=== PATIENT | female | born 1960 | race Caucasian/White ===

== ENCOUNTER 2020-03-30 11:03 | Day surgery (SDC) | payer BC ==
[~2020-03-30 11:03] MED LIST: EPINEPHrine 1 MG/ML 30 ML MDV IRR SCH; Lactated Ringers 1,000 ML IV SCH; Lidocaine 1%/Sod Bicarbonate in NS 8.4% 1 ML Syringe IDERM PRN; Sodium Chloride 0.9% 10 ML Syringe FLUSH PRN
[2020-03-30] MEDS ORDERED: Bupivacaine 0.25% 10 ML SDV ONE (11:26)
--- NOTE | 2020-03-30 11:50 | PCM.PREANE ---
Preanesthetic Assessment - Anesthesia/Transfusion/Family Hx Anesthesia History: Prior Anesthesia Without Reaction - Review of Systems General: No Symptoms Pulmonary: No Symptoms Cardiovascular: No Symptoms Gastrointestinal: No Symptoms Neurological: No Symptoms Other: Reports: None - Physical Assessment NPO Status Date: 03/29/20 NPO Status Time: 21:00 Vital Signs: Last Vital Signs Temp 97.2 F 03/30/20 11:05 Pulse 71 03/30/20 11:05 Resp 16 03/30/20 11:05 BP 113/88 03/30/20 11:05 Pulse Ox 99 03/30/20 11:05 Height: 1.57 m Weight: 83.915 kg ASA Class: 2 Mental Status: Alert & Oriented x3 Airway Class: Mallampati = 2 Dentition: Reports: Normal Dentition Thyro-Mental Finger Breadths: 3 Mouth Opening Finger Breadths: 3 ROM/Head Extension: Full Lungs: Clear to Auscultation, Normal Respiratory Effort Cardiovascular: Regular Rate, Regular Rhythm - Lab Values: Laboratory Last Values SARS Virus RNA (PCR) Negative (NEGATIVE) 03/29/20 14:46 MRSA (PCR) Negative 03/22/20 13:17 - Allergies Allergies/Adverse Reactions: Allergies Allergy/AdvReac Type Severity Reaction Status Date / Time amoxicillin [From Augmentin] Allergy Stomach Verified 03/30/20 10:43 Upset clavulanic acid Allergy Stomach Verified 03/30/20 10:43 [From Augmentin] Upset - Acknowledgements Anesthesia Type Planned: General Anesthesia Pt an Appropriate Candidate for the Planned Anesthesia: Yes Alternatives and Risks of Anesthesia Discussed w Pt/Guardian: Yes Pt/Guardian Understands and Agrees with Anesthesia Plan: Yes PreAnesthesia Questionnaire - SUBSTANCE USE Smoking Status *Q: Never Smoker Recreational Drug Use History: No - HOME MEDS Home Medications: Home Meds Acetaminophen/HYDROcodone [[place] 325-5 MG] 1 - 2 tab PO Q6H PRN #20 tablet 03/30 [Rx] Acetaminophen/HYDROcodone [[place] 325-5 MG] 1 tab PO ASDIRECTED 03/30/20 [History ] Aspirin 325 mg PO BID #84 tab 03/30/20 [Rx] Cyclobenzaprine [Flexeril] 10 mg PO DAILY 03/30/20 [History] Gabapentin [Neurontin] 600 mg PO DAILY 03/30/20 [History] Multivitamin [Multivitamins] 1 cap PO DAILY 03/30/20 [History] Naproxen 500 mg PO BID 03/30/20 [History] - CURRENT (IN HOUSE) MEDS Current Meds: Current Medications Epinephrine HCl (Adrenalin) 3 mg IRR ONETIME ANGELINA Stop: 03/30/20 23:00 Lactated Ringer's (Ringers, Lactated) 1,000 mls @ 125 mls/hr IV ASDIRECTED ANGELINA Stop: 03/30/20 23:00 Last Admin: 03/30/20 11:20 Dose: 125 mls/hr Lidocaine/Sodium Bicarbonate (Buffered Lidocaine 1% In Ns 8.4%) 0.25 ml IDERM ONETIME PRN PRN Reason: Prior to IV Start Stop: 03/30/20 18:00 Last Admin: 03/30/20 11:20 Dose: 0.25 ml Sodium Chloride (Saline Flush) 10 ml FLUSH ASDIRECTED PRN PRN Reason: Keep Vein Open Stop: 03/30/20 18:00 Discontinued Medications Bupivacaine HCl (Sensorcaine-Mpf 0.25%) Confirm Administered Dose 20 ml .ROUTE .STK-MED ONE Stop: 03/30/20 11:27
[2020-03-30] MEDS ORDERED: ceFAZolin 1 GM Vial ONE (11:51)
[2020-03-30] MEDS ORDERED: fentaNYL 100 MCG/2 ML SDV ONE (11:52)
[2020-03-30] MEDS ORDERED: Propofol 200 MG/20 ML SDV ONE (11:52)
[2020-03-30] MEDS ORDERED: Lidocaine 1% 4 ML ONE (11:53)
[2020-03-30] MEDS ORDERED: Midazolam 1 MG/ML 2 ML SDV ONE (11:53)
[2020-03-30] MEDS ORDERED: Lactated Ringers 1,000 ML ONE (12:13)
[2020-03-30] MEDS ORDERED: Ondansetron 4 MG/2 ML SDV ONE (12:14)
[2020-03-30] MEDS ORDERED: Ketorolac 30 MG/ML SDV ONE (12:36)
--- NOTE | 2020-03-30 13:02 | PCM.POSTAN ---
POST ANESTHESIA ASSESSMENT - MENTAL STATUS Mental Status: Somnolent - VITAL SIGNS Vital Signs: Last Vital Signs Temp 97.0 F 03/30/20 12:53 Pulse 71 03/30/20 11:05 Resp 11 L 03/30/20 12:53 BP 119/79 03/30/20 12:53 Pulse Ox 100 03/30/20 12:53 - RESPIRATORY Respiratory Status: Respiratory Rate WNL, Airway Patent, O2 Saturation Stable, Supplemental Oxygen - CARDIOVASCULAR CV Status: Pulse Rate WNL, Blood Pressure Stable - GASTROINTESTINAL GI Status: No Symptoms - PAIN Pain Score: 0 - POST OP HYDRATION Hydration Status: Adequate & Stable
[2020-03-30] MEDS ORDERED: fentaNYL 100 MCG/2 ML SDV IVPUSH PRN (13:12)
[2020-03-30] MEDS ORDERED: HYDROmorphone 0.5 MG/0.5 ML Syringe IVPUSH PRN (13:12)
[2020-03-30] MEDS ORDERED: fentaNYL 100 MCG/2 ML SDV IVPUSH STA (13:39)
[2020-03-30] MEDS ORDERED: Acetaminophen/HYDROcodone 325-5 MG Tab PO PRN (14:05)
--- NOTE | 2020-03-30 14:12 | PCM48HPAN ---
Post Anesthesia Note - EVALUATION WITHIN 48HRS OF ANESTHETIC Vital Signs in Normal Range: Yes (within the preop baseline) Patient Participated in Evaluation: Yes Respiratory Function Stable: Yes Airway Patent: Yes Cardiovascular Function Stable: Yes Hydration Status Stable: Yes Pain Control Satisfactory: Yes (still 5-6 but states improvement) Nausea and Vomiting Control Satisfactory: Yes Mental Status Recovered: Yes Vital Signs: Last Vital Signs Temp 97.0 F 03/30/20 12:53 Pulse 71 03/30/20 11:05 Resp 8 L 03/30/20 13:45 BP 152/88 H 03/30/20 13:45 Pulse Ox 100 03/30/20 13:50 - COMMENTS/OBSERVATIONS Free Text/Narrative:: Patient is to be discharged home with PO pain meds.
--- NOTE | 2020-03-31 10:24 | PCM.OPNOTE ---
- General Post-Op/Procedure Note Date of Surgery/Procedure: 03/30/20 Operative Procedure(s): right knee video arthroscopy with chondroplasty of medial femoral condyle and partial synovectomy Pre Op Diagnosis: right knee osteoarthrosis with medial meniscus tear Post-Op Diagnosis: right knee osteoarthritis with synovitis Anesthesia Technique: General LMA, Local Primary Surgeon: Remi Mcarthur Anesthesia Provider: Bridger Laird Director Professional Services: Park Montanez in mLs: 5 Complications: None Condition: Good
--- NOTE | 2020-04-06 18:40 | OR ---
DATE OF OPERATION: 03/30/2020 SURGEON: Remi Mcarthur MD OPERATIVE PROCEDURE: Right knee video arthroscopy with chondroplasty of the medial femoral condyle and partial synovectomy. PREOPERATIVE DIAGNOSIS: Right knee osteoarthrosis with medial meniscus tear. POSTOPERATIVE DIAGNOSIS: Right knee osteoarthritis with synovitis. ANESTHESIA: General LMA with local. ANESTHESIA PROVIDER: Monica Covington. RESEARCH ATTORNEY: Park Montanez PA-C. ESTIMATED BLOOD LOSS: Less than 5 mL. COMPLICATIONS: None. CONDITION: Stable. DESCRIPTION OF PROCEDURE: The patient was identified in the preop holding area. Proper site was marked and identified by surgeon. The patient takes back to the operative theater where after adequate anesthesia, the patient's left lower extremity was placed in a well-leg gambino, right lower extremity had a nonsterile tourniquet applied and was placed in a C-clamp gambino. Right lower extremity was then sterilely prepped and draped in the usual sterile fashion. OR time-out was performed. Patient received 2 g of IV Ancef. The foot of the bed was lowered. At this time, right lower extremity was exsanguinated. Tourniquet was insufflated to 250 mmHg. A standard anterolateral portal incision was made. Scope trocar was introduced to the knee joint. 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 The patient was noted to have loose cartilage pieces in the medial gutter. An anteromedial portal was then created. The meniscus was found to be intact, no signs of meniscus tear, but patient did have large cartilaginous flaps of the medial femoral condyle, grade 3/4 chondromalacia. At this time, a chondroplasty of medial femoral condyle was done back to a stable rim. ACL was intact in the notch. Lateral compartment showed grade 1/2 chondromalacia changes. The chondroplasty of the patella was then performed as well and a partial synovectomy of the anterior fat pad as well as the suprapatellar region was then done. Adequate saline was flushed through the knee. Excess saline was drained. 3-0 nylon suture was used for closure of the skin. The patient was placed in a sterile soft dressing and sent to the PACU in stable condition and tolerated the procedure well. OPERATION PERFORMED: MMODAL /[id number]
== END 2020-03-30 15:12 | disposition home or self-care (01) ==
LOC: JD.SDS 11:03
PROVIDERS: ATTEND Orthopaedic Surgery
DX: M17.11 Unilateral primary osteoarthritis, right knee (principal); M22.41 Chondromalacia patellae, right knee; M65.861 Other synovitis and tenosynovitis, right lower leg; M23.41 Loose body in knee, right knee; M25.50 Pain in unspecified joint; M79.641 Pain in right hand; M79.642 Pain in left hand; G89.29 Other chronic pain; R60.9 Edema, unspecified; I10 Essential (primary) hypertension; L27.0 Generalized skin eruption due to drugs and medicaments taken internally; Z11.59 Encounter for screening for other viral diseases; Z79.899 Other long term (current) drug therapy; Z88.0 Allergy status to penicillin
CPT/HCPCS: 29877; 87635; 87641; J0171; J0690; J1170; J1885; J2001; J2250; J2405; J2704; J3010; J3490; J7120; 01400; U0002